=== PATIENT | male | born 1995 | race Caucasian/White ===

== ENCOUNTER 2018-09-03 23:38 | Emergency (ER) | payer OTHER ==
[~2018-09-03] VITALS: Ht 182.9 cm; Wt 63.6 kg
[2018-09-04 01:58] VITALS: BP 116/76
--- NOTE | 2018-09-04 07:16 | REP ---
Left ankle four views: There is soft tissue edema laterally. There is no fracture or dislocation. Mineralization is normal. The joint spaces are unremarkable. There are no calcifications or foreign bodies. Impression: Soft tissue edema laterally. No fracture or dislocation. Electronically Signed by Stephen Leone MD 09/04/2018 07:08 A
== END 2018-09-04 02:04 | disposition home or self-care (01) ==
LOC: M ED 23:38
DX: S93.402A Sprain of unspecified ligament of left ankle, initial encounter (principal); X50.1XXA Overexertion from prolonged static or awkward postures, initial encounter; Y92.410 Unspecified street and highway as the place of occurrence of the external cause